=== PATIENT | male | born 1945 | race Caucasian/White ===

== ENCOUNTER 2018-11-12 05:52 | Inpatient (IN) | payer OTHER ==
[~2018-11-12 05:52] MED LIST: Buffered Lidocaine 1% SYRIN* 1 ML/SYRINGE INTRADERM ONE; HYDROmorphone INJ1* 1 MG/ML SYRINGE IV PRN; Naloxone* 0.4 MG/ML 1 ML VIAL IV PRN; PROCHLORPERAZINE INJ 5 MG/ML 2 ML VIAL IV PRN; fentaNYL* 50 MCG/ML 2 ML VIAL (100 MCG VIAL) IV PRN; oxyCODONE TAB* 5 MG TAB PO PRN
--- OUTSIDE RECORDS SUMMARY | 2018-11-12 05:56 | XMS REPORT | Continuity of Care Document ---
:1945 External Reference #:[id number] Author Name Ene Wheeler M.D. 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 Onset: 09/20/2018 Social History Type Date Description Comments Sex Unknown ETOH Use Denies alcohol use Tobacco Use Start: Unknown End: Patient is a former smoker Unknown Smoking Status Reviewed: 10/30/18 Patient is a former smoker Exercise Type/Frequency Exercises sporadically Allergies, Adverse Reactions, Alerts Active Allergies Reaction Severity Comments Date Penicillin 09/20/2018 Procaine 09/20/2018 Tetracycline 09/20/2018 Medications Active Medications SIG Qnty Indications Ordering Provider Date Ble Compression use during the I89.0 Ene Wheeler, 09/20/2018 Stockings With Zippers day s/p tka M.D. Accu-Chek Pari Test Unknown Strips Fluticasone Propionate 2 sprays each Unknown nostril daily as 50mcg/Act Suspension needed BD Glucose 15g (3 tablets) Unknown 5gm Chewtabs as needed for blood glucose less than 80mg/dl Novolog Flexpen Unknown 100Unit/ML Solution Pen-Inject Loratadine Unknown 10mg Tablets Miconazole Nitrate apply twice daily Unknown 2% to affected area. Powder Metformin HCL take one tablet Unknown 1000mg by mouth twice a Tablets day Atorvastatin Calcium 1 by mouth every Unknown 20mg day Tablets Levothyroxine Sodium 1 by mouth every Unknown 150mcg day Tablets Multi Vitamin Mens 1 by mouth every Unknown Tablets day Preservision Areds 2 Unknown Areds 2 Capsules Naproxen 1 tablet with Unknown 500mg Tablets food by mouth twice a day Aspirin Adult Low Dose 1 by mouth every Unknown 81mg day Tablets DR Albuterol Sulfate Unknown Docusate Sodium Unknown Immunizations Description No Information Available Vital Signs Date Vital Result Comment 10/30/2018 10:36am Height 67 inches 5'7" Weight 276.00 lb Heart Rate 68 /min BP Systolic 122 mmHg BP Diastolic 64 mmHg Respiratory Rate 16 /min Body Temperature 97.1 F Pain Level 2 BMI (Body Mass Index) 43.2 kg/m2 09/20/2018 11:40am Height 67 inches 5'7" Weight 277.00 lb Heart Rate 78 /min BP Systolic 132 mmHg BP Diastolic 72 mmHg Respiratory Rate 14 /min Pain Level 1 BMI (Body Mass Index) 43.4 kg/m2 Results Description No Information Available Procedures Description No Information Available Medical Devices Description No Information Available Encounters Type Date Location Provider Dx Diagnosis Office Visit 09/20/2018 Orthopedic Ene Wheeler, M25.462 Effusion, left 11:15a [facility] knee M17.11 Unilateral primary osteoarthritis, right knee M25.562 Pain in left knee I89.0 Lymphedema, not elsewhere classified Assessments Date Code Description Provider 10/30/2018 Marianne5.462 Effusion, left knee Ene Wheeler M.D. 10/30/2018 M17.11 Unilateral primary osteoarthritis, right knee Ene Wheeler M.D. 10/30/2018 M25.562 Pain in left knee Ene Wheeler M.D. 09/20/2018 M25.462 Effusion, left knee Ene Wheeler M.D. 09/20/2018 M17.11 Unilateral primary osteoarthritis, right knee Ene Wheeler M.D. 09/20/2018 M25.562 Pain in left knee Ene Wheeler M.D. 09/20/2018 I89.0 Lymphedema, not elsewhere classified Ene Wheeler M.D. Plan of Treatment Future Appointment(s):11/22/2018 9:45 am - Ene Wheeler M.D. at [facility].11/12/2018 1:45 pm - DEE DEE Woodward at [facility]11/12/2018 1:45 pm - Gaudencio Pop PA-C at [facility]11/12/2018 1:45 pm - Ene Wheeler M.D. at [facility]10/30/2018 - Ene Wheeler M.D.M25.462 Effusion, left kneeM17.11 Unilateral primary osteoarthritis, right kneeFollow up:Follow up : To ORM25.562 Pain in left knee Functional Status Description No Information Available Mental Status Description No Information Available Referrals Refer to Reason for Referral Status Appt Date Faisal Buckner MD [place] [address] [phone]
--- OUTSIDE RECORDS SUMMARY | 2018-11-12 05:56 | XMS REPORT | Continuity of Care Document ---
:1945 External Reference #:[id number] Author Name Vidya Pierre Care Team Providers Name Role Phone [facility] Primary Care Physician Unavailable Payers Date Identification Numbers Payment Provider Subscriber Expires: 2019 Policy Number: [id number] [place]/ [facility] Selvin Paez Group Name: Auth#[id number] [address] [address] PayID: [id number] [place] [address] Problems Active Problems Provider Date Localized, primary osteoarthritis Ene Wheeler M.D. Onset: 09/20/2018 Family History Date Family Member(s) Observation Comments General Cancer General Rheumatoid Arthritis Social History Type Date Description Comments Sex Unknown Lives With Spouse Occupation Retired ETOH Use Denies alcohol use Tobacco Use Start: Unknown End: Patient is a former smoker Unknown Smoking Status Reviewed: 09/20/18 Patient is a former smoker Exercise Type/Frequency Exercises sporadically Allergies, Adverse Reactions, Alerts Active Allergies Reaction Severity Comments Date Penicillin 09/20/2018 Procaine 09/20/2018 Tetracycline 09/20/2018 Medications Active Medications SIG Qnty Indications Ordering Provider Date Ble Compression use during the I89.0 Ene Wheeler, 09/20/2018 Stockings With Zippers day s/p TKA M.D. Accu-Chek Pari Test Unknown Strips Fluticasone [...] DR Albuterol Sulfate Unknown Docusate Sodium Unknown Vital Signs Date Vital Result Comment 09/20/2018 11:40am Height 67 inches 5'7" Weight 277.00 lb Heart Rate 78 /min BP Systolic 132 mmHg BP Diastolic 72 mmHg Respiratory Rate 14 /min Pain Level 1 BMI (Body Mass Index) 43.4 kg/m2 Plan of Treatment 09/20/2018 - Ene Wheeler M.D.M25.462 Effusion, left kneeFollow up:Follow up: 7-10 days before qyrdhvoY93.12 Unilateral primary osteoarthritis, left kneeM25.562 Pain in left kneeI89.0 Lymphedema, not elsewhere classifiedNew Medication:Ble Compression Stockings With Zippers - use during the day s/p TKA
[2018-11-12] MEDS ORDERED: Ondansetron ODT TAB* 4 MG PO ONE (06:00)
[2018-11-12] MEDS ORDERED: celeCOXIB CAP* 200 MG PO ONE (06:00)
[2018-11-12] MEDS ORDERED: Gabapentin CAP(*) 300 MG PO ONE (06:00)
[2018-11-12] MEDS ORDERED: Lactated Ringers 1000 ML Bag* 1,000 ML IV SCH (06:00)
[2018-11-12] MEDS ORDERED: DiMENhydriNATE IV* 50 MG/ML VIAL IV PUSH ONE (06:00)
[2018-11-12] MEDS ORDERED: Acetaminophen TAB* 325 MG PO ONE (06:00)
[2018-11-12] MEDS ORDERED: Famotidine IV* 10 MG/ML 2 ML (20 mg) IV ONE (06:00)
[2018-11-12] MEDS ORDERED: Ondansetron ODT TAB* 4 MG ONE (06:56)
[2018-11-12] MEDS ORDERED: Clindamycin 900 MG/D5W BAG(*) 900 MG/50 ML BAG IVPB ONE (06:57)
[2018-11-12] MEDS ORDERED: celeCOXIB CAP* 200 MG ONE (06:57)
[2018-11-12] MEDS ORDERED: Gabapentin CAP(*) 300 MG ONE (06:57)
[2018-11-12] MEDS ORDERED: Acetaminophen TAB* 325 MG ONE (06:57)
[2018-11-12] MEDS ORDERED: Famotidine IV* 10 MG/ML 2 ML (20 mg) ONE (06:57)
[2018-11-12] MEDS ORDERED: Bupivacaine 0.5% SDV PF* 30ML VIAL ONE ×2 (07:01→08:26)
[2018-11-12] MEDS ORDERED: fentaNYL* 50 MCG/ML 5 ML VIAL (250 MCG VIAL) ONE (07:02)
[2018-11-12] MEDS ORDERED: Midazolam* 1 MG/ML 5 ML VIAL (5 MG) ONE (07:02)
[2018-11-12] MEDS ORDERED: KETAMINE HCL* 50 MG/ML 10 ML VIAL ONE (07:02)
[2018-11-12] MEDS: Clindamycin 600 MG IVPREMIX(* 600 MG/50 ML SDV IV SCH ×2 (07:36→20:24)
[2018-11-12] MEDS ORDERED: ROPIVACAINE 5 MG/ML 30 ML BTL (0.5%) ONE (08:14)
[2018-11-12] MEDS ORDERED: EPHEDrine (Pressors)* 50 MG/ML VIAL ONE (08:26)
[2018-11-12] MEDS ORDERED: DiMENhydriNATE IV* 50 MG/ML VIAL ONE (08:26)
[2018-11-12] MEDS ORDERED: Propofol* 10 MG/ML 20 ML BTL ONE (08:26)
[2018-11-12] MEDS ORDERED: Lidocaine 2% PF * 5 ML VIAL ONE (08:27)
[2018-11-12] MEDS ORDERED: HYDROmorphone INJ1* 1 MG/ML SYRINGE ONE (09:41)
[2018-11-12] MEDS ORDERED: PROCHLORPERAZINE INJ 5 MG/ML 2 ML VIAL ONE (10:16)
[2018-11-12] MEDS ORDERED: Ondansetron ODT TAB* 4 MG PO PRN (10:26)
[2018-11-12] MEDS ORDERED: oxyCODONE TAB* 5 MG TAB PO PRN (10:26)
[2018-11-12] MEDS ORDERED: Ondansetron INJ* 2 MG/ML VIAL IV PRN (10:26)
[2018-11-12] MEDS ORDERED: Temazepam CAP* 15 MG PO PRN (10:26)
[2018-11-12] MEDS ORDERED: Polyethylene Glycol 3350* 17 GM PACKET PO PRN (10:26)
[2018-11-12] MEDS ORDERED: diPHENhydraMINE IV* 50 MG/ML 1 ml VIAL (BENADRYL) IV PRN (10:26)
[2018-11-12] MEDS ORDERED: diPHENhydraMINE PO* 25 MG PO PRN (10:26)
[2018-11-12] MEDS ORDERED: Morphine INJ* 2 MG/ML 1 ML SYRINGE (TWO MG - NEW SYRINGE VERSION) IV PRN (10:26)
[2018-11-12] MEDS ORDERED: Magnesium Hydroxide LIQ* 30 ML UDC PO PRN (10:26)
[2018-11-12] MEDS ORDERED: Albuterol HFA INHALER* 8 gm MDI INH PRN (10:43)
[2018-11-12] MEDS ORDERED: Insulin REGULAR(*) 1 UNITS UNIT ONE (10:49)
[2018-11-12] MEDS ORDERED: Insulin REGULAR(*) 1 UNITS UNIT SUBCUT ONE (11:00)
[2018-11-12] MEDS ORDERED: oxyCODONE TAB* 5 MG TAB ONE (11:11)
[2018-11-12] MEDS ORDERED: Dextrose 50% VIAL 50 ml IV PUSH PRN ×2 (12:16→17:34)
[2018-11-12] MEDS: Lactated Ringers 1000 ML Bag* 1,000 ML IV SCH ×2 (12:27→23:30)
--- NOTE | 2018-11-12 13:38 | CONS ---
CC: Taylor Noonan; Dr. Wheeler * CONSULTATION REPORT: DATE OF CONSULT: 11/12/18 PRIMARY CARE PROVIDER: Taylor Noonan from [place] in [place]. REQUESTING PHYSICIAN: Dr. Wheeler for medical management of this patient after a right knee replacement. CHIEF COMPLAINT: Right knee pain. HISTORY OF PRESENT ILLNESS: Selvin Paez is a 72-year-old male with history of morbid obesity, status post gastric bypass, who is now seen in postoperative unit after elective right knee replacement. The patient has a history of diabetes and morbid obesity and Dr. Wheeler requested medical management consult for this patient postoperatively. PAST MEDICAL HISTORY: 1. History of PE in 1970s. 2. History of asthma. 3. Osteoarthritis. 4. Diabetes type 2, insulin dependent. 5. Morbid obesity, status post gastric sleeve surgery. 6. History of left breast tumor excision. 7. History of forehead tumor excision, both of them benign. MEDICATIONS: At home include: 1. Insulin aspart per sliding scale 3 times a day. The patient uses usually 6 units of insulin with each meal. 2. Aspirin 81 mg daily. 3. Albuterol inhaler on a p.r.n. basis. 4. Levothyroxine 150 mcg daily. 5. Metformin 1000 mg b.i.d. 6. Senna 1 tablet daily p.r.n. 7. Naproxen 500 mg q.a.m. p.r.n. 8. Flonase nasal spray, 2 sprays both nostrils q.a.m. p.r.n. 9. PreserVision AREDS 1 capsule b.i.d. 10. Atorvastatin 10 mg q.a.m. 11. Miconazole topical b.i.d. p.r.n. ALLERGIES: PENICILLIN, PROCAINE, and TETRACYCLINE cause hives and labored breathing. FAMILY HISTORY: Reviewed and noncontributory. SOCIAL HISTORY: The patient lives with his , who is his surrogate, her first name is Will Paez. He denies any alcohol, tobacco, or drug use. He had been ambulating with rolling walker. PHYSICAL EXAM: Blood pressure of 142/70, heart rate of 72 and regular, respiratory rate 17, oxygen saturation 99% on 3 L of oxygen via nasal cannula, temperature of 98.8. General: The patient is a very pleasant 72-year-old male with BMI of 43, who is in no acute distress. Alert, awake, and oriented x3. HEENT: Head: Atraumatic, normocephalic. Eyes: Pupils are equal, reactive to light and accommodation. Oropharynx is clear. Mucosa moist. Neck: Supple. No JVD. No bruit bilaterally. Cardiovascular: Regular rate and rhythm. No murmur. Respiratory: Clear to auscultation bilaterally. Abdomen: Soft, nontender. Bowel sounds are present in 4 quadrants. Extremities: There is trace bilateral ankle edema. Pulses +2 bilaterally. There is no clubbing, cyanosis. On neuro evaluation, speech clear. Cranial nerves II through XII grossly intact. Motor strength is 5/5 bilaterally. On evaluation of the skin, the patient's postoperative right knee is wrapped in postsurgical dressings and Cryo unit that was not removed for inspection. Psychiatric evaluation: The patient is slightly lethargic after his sedation for the surgery, but otherwise oriented x3 with no evidence of anxiety or depression. LABORATORY DATA: Showed today's glucose level of 212 postoperatively. ASSESSMENT AND PLAN: 1. For postoperative management after right knee replacement, this is going to be as per the orthopedic service and Dr. Wheeler. The patient was already ordered apixaban b.i.d. postoperatively for DVT prophylaxis. 2. In regards to patient's diabetic management, he is going to be placed on insulin sliding scale. His metformin is going to be held. 3. For his hypothyroidism, his Synthroid is going to be continued at home dose. 4. For DVT prophylaxis, as above, apixaban twice a day. 5. The patient's code status is full. His surrogate is his . TIME SPENT: Approximately 55 minutes was spent on consultation of this patient. Thank you very much for allowing our services to see the patient in consultation. We will follow on daily basis. [id number]/[facility] #: [id number] MAREN
[2018-11-12] MEDS ORDERED: INSULIN ASPART 100 UNIT SC SCH (14:00)
--- NOTE | 2018-11-12 14:24 | PN ---
Progress Note - Progress Note Date of Service: 11/12/18 - Post-op Note: Post-op: Patient resting comfortably in bed eating meal. His pain is well controlled. He has not been up with PT yet. He denies SOB or CP. He can DF/PF, sensation is intact with 2+ DP pulse. Skin is warm and dry. We will monitor and appreciate medicine's management. Continue pain management and PT.
[2018-11-12] MEDS: Acetaminophen TAB* 325 MG PO SCH ×2 (14:56→22:14)
[2018-11-12] MEDS ORDERED: Insulin LISPRO* 1 UNITS UNIT SUBCUT ONE (17:34)
[2018-11-12] MEDS: traMADol TAB* 50 MG PO PRN (17:59)
[2018-11-12] MEDS: Insulin LISPRO* 1 UNITS UNIT SUBCUT SCH ×2 (18:08→22:11)
[2018-11-12] MEDS ORDERED: Clindamycin 600 MG/D5W BAG(*) 600 MG/50 ML BAG IV SCH (20:01)
[2018-11-12] MEDS: Clindamycin 600 MG/D5W BAG(*) 600 MG/50 ML BAG IV SCH (20:47)
[2018-11-12] MEDS ORDERED: metFORMIN* 1,000 MG TAB PO SCH (21:00)
--- NOTE | 2018-11-12 21:55 | OP ---
Operative Report - Blank - Operative Report Date of Operation: 11/12/18 Note: KRISTINA MERCADO 1945 Date of Surgery: 11/12/18 Ene Wheeler MD Supervisor Nurse: Peter GERMAIN did help throughout the procedure with preparation of the knee, wound retraction, manipulation of the knee, and wound closure. Anesthesiologist: Ed Charlton MD Anesthesia Type: Spinal Preoperative Diagnosis: Right severe degenerative osteoarthritis of the knee Postoperative Diagnosis: As above Procedure Performed: Right Total Knee Arthroplasty Tourniquet time: 55 minutes Complications: None Specimen: Bone and cartilage from the right knee joint sent to pathology. Hardware Used: Cemented Arenas and Nephew total knee hardware was used - For the femur a size 6 right legion posterior stabilized femoral component, for the tibia a size 6 right williams II tibial baseplate, for the insert a size 9mm 5-6 posterior stabilized articular polyethylene insert, and for the patella a size 35 3-peg all poly patella. Brief History/Indication: KRISTINA MERCADO was known in clinic and had a history of severe right knee pain and swelling. He failed conservative treatment with anti-inflammatories, pain pills, intra-articular injections and physical therapy. He elected to undergo right total knee arthroplasty due to continued pain and decreased quality of life. Radiographs showed severe end stage osteoarthritis of the knee with bone on bone contact. Informed consent was obtained from the patient. He understood the risks of surgery included but were not limited to: bleeding, infection, damage to nearby structures, intraoperative fracture, nerve palsy, failure of the hardware, early loosening, knee stiffness or loss of motion, anesthesia complications, stroke, heart attack , blood clot and . He wished to proceed. Intra-Operative Findings: Intraoperatively the patient was noted to have severe loss of cartilage in all 3 compartments of the knee. Description of the Procedure: KRISTINA MERCADO was identified in the preanesthesia unit. His right knee was marked as the correct operative side. Informed consent was signed and placed in the chart. The patient was taken to the operating room and placed under anesthesia without complication. A starks catheter was placed. A tourniquet was placed on the right thigh. The right lower extremity was prepped and draped in the usual sterile fashion. Preoperative time-out was made to correctly identify the patient, side and site. Appropriate intraoperative antibiotics were given within one hour of incision. Tourniquet was inflated. A midline incision was made and carried sharply down to the extensor mechanism. A new 10 blade was used to make a standard medial parapatellar arthrotomy. The patella was subluxed laterally. Electrocautery was used to dissect soft tissue off the superomedial tibia to the midsagittal plane. The knee was flexed up. The anterior horn of the lateral meniscus and the ACL were sharply incised. A drill was used to enter the distal femur. The intramedullary distal femoral cutting guide was pinned on the distal femur. The oscillating saw was used to make the distal femoral cut. The external rotation guide was pinned on the distal femur and the distal femur was sized to a size 6. The size 6 multi-cutting jig was pinned on the distal femur. The oscillating saw was used to make the appropriate 4 chamfer cuts. Next the PCL was completely released. The extramedullary tibial cutting guide was pinned on the proximal tibia and the oscillating saw was used to make the proximal tibial cut perpendicular to the mechanical axis of the tibia. The bone was carefully removed. The knee was brought out into full extension. The spacer block was placed and had excellent fit with the knee in full extension. The medial and lateral ligaments were well balanced. The flexion and extension gaps were well balanced. The knee was flexed up. Lamina procurement clerk was placed both medially and laterally. Any remaining meniscus was removed with electrocautery. Curved osteotome was used to remove any posterior osteophytes. The tibial tray and drop trip were placed and confirmed a satisfactory tibial cut. The size 6 right femoral trial was impacted onto the distal femur. This trial had excellent fit and stability. The box for the posterior stabilized implant was prepared using a box cut osteotome and a reamer. Next a tibial tray trial and 9 mm insert trial was placed. The knee was taken through a range of motion and had full extension to 130 degrees of flexion. Patellofemoral tracking was satisfactory. The patella was inverted and sized to a size 35. Three peg holes were drilled through the size 35 drill guide. The trial patella was placed and the knee was taken through a range of motion. There was satisfactory patellofemoral tracking. All trials were removed. The tibia was subluxed anteriorly and sized to a size 6. The proximal tibial was prepared with a size 6 keel punch. All bony cut surfaces were irrigated with sterile saline and dried. Final implants were cemented into place starting with the tibia, followed by the femur, and last the patella. A 9 mm insert trial was placed and the knee was brought into full extension. Tourniquet was turned down and the knee was copiously irrigated with sterile saline. Electrocautery was used to obtain meticulous hemostasis. Once the cement had fully cured, the insert trial was removed. Any excess cement was removed from around the hardware and capsule. Final insert chosen was a 9 mm posterior stabilized Williams II articular insert size 5-6. Stability of the insert was checked and noted to be stable. The extensor mechanism was closed using number 1 vicryls. The rest of the incision was closed in a layered fashion using 0 and 2-0 vicryls. The skin was closed using 3-0 nylon suture. Sterile xeroform, 4x4s and webril were used to cover the incision. Sascha wrap and cold pack were used to cover the dressings. The patients anesthesia was reversed without difficulty. He was taken to the PACU in stable condition. Intended weight-bearing will be as tolerated.
[2018-11-12] MEDS: Cyclobenzaprine TAB* 10 MG PO PRN (22:09)
[2018-11-12] MEDS: Docusate CAP* 100 MG PO SCH (22:12)
[2018-11-12] MEDS: oxyCODONE/Acetamin 5/325 MG* TAB PO PRN (22:12)
[2018-11-12] MEDS: Magnesium Hydroxide LIQ* 30 ML UDC PO SCH (22:13)
[2018-11-13] MEDS: oxyCODONE/Acetamin 5/325 MG* TAB PO PRN ×2 (04:20→11:13)
[2018-11-13] MEDS: Acetaminophen TAB* 325 MG PO SCH ×3 (05:32→22:22)
[2018-11-13] MEDS: Levothyroxine TAB* 150 MCG TAB PO SCH (05:39)
[2018-11-13] MEDS: Clindamycin 600 MG/D5W BAG(*) 600 MG/50 ML BAG IV SCH ×2 (05:41→14:14)
[2018-11-13] MEDS: traMADol TAB* 50 MG PO PRN ×3 (07:49→22:21)
[2018-11-13] MEDS: Cetirizine* 10 MG TAB PO SCH (08:17)
[2018-11-13] MEDS: Apixaban* 2.5 MG TAB PO SCH ×2 (08:17→22:20)
[2018-11-13] MEDS: Vitamin THERAPEUTIC TAB PO SCH (08:18)
[2018-11-13] MEDS: Atorvastatin* 20 MG TAB PO SCH ×2 (08:18→10:02)
[2018-11-13] MEDS: Docusate CAP* 100 MG PO SCH ×2 (08:18→22:21)
[2018-11-13] MEDS: Insulin LISPRO* 1 UNITS UNIT SUBCUT SCH ×4 (08:19→22:48)
[2018-11-13] MEDS: Magnesium Hydroxide LIQ* 30 ML UDC PO SCH ×2 (08:19→22:22)
[2018-11-13] MEDS: Cyclobenzaprine TAB* 10 MG PO PRN ×3 (08:19→22:21)
[2018-11-13] MEDS ORDERED: Influenza VAC *QUAD* 2019-20* 0.5 ML SYRINGE IM ONE (09:00)
[2018-11-13 10:26] LABS: Hematocrit 34 % (42-52); Hemoglobin 11.5 g/dL (14.0-18.0); Mean Platelet Volume 9.8 fL (7.4-10.4); Platelet Count 93 10^3/uL (150-450)
--- NOTE | 2018-11-13 10:39 | PN ---
Progress Note - Progress Note Date of Service: 11/13/18 SOAP: Subjective: []Pt seen at bedside. He feels well without complaints. Denies CP, SOB, dizziness, nausea. Has remote hx PE Objective: []Gen: Appears well, NAD RLE: RIght knee dressing CDI, thigh soft, DF/PF intact, DP2+, sensation intact to light touch distally Calves supple and nontender without erythema or palpable cords. BL edema which is baseline Assessment: []POD 1 sp RTK Plan: []WBAT PT/OT eliquis 2.5 mg po BID x 30 days post op Todays labs not yet back Plans for DC home tomorrow Vital Signs Temp 98.3 F 11/13/18 08:12 Pulse 70 11/13/18 08:12 Resp 16 11/13/18 08:19 BP 135/54 11/13/18 08:12 Pulse Ox 100 11/13/18 08:12 Intake & Output 11/12/18 11/13/18 11/13/18 18:59 06:59 18:59 Intake Total 2980 1925 1376 Output Total 375 1550 200 Balance 2605 375 1176 Weight 277 lb Intake: IV Fluids 1999 1045 961 ABX - CLINDAMYCIN 55 LR 2000 990 961 IVPB 55 ABX - CLINDAMYCIN 55 Oral 980 880 360 Output: Urine 375 200 Sam 1550 Laboratory Last Values Hgb 11.5 g/dL (14.0-18.0) L 11/13/18 10:11 Hct 34 % (42-52) L 11/13/18 10:11 Plt Count 93 10^3/uL (150-450) L 11/13/18 10:11 MPV 9.8 fL (7.4-10.4) 11/13/18 10:11 POC Glucose (mg/dL) 209 mg/dL (70-100) H 11/13/18 07:51
[2018-11-13 10:41] LABS: BUN/Creatinine Ratio 16.7 (8-20); Calcium 8.4 mg/dL (8.6-10.3); EGFR African American 130.6 (>60); EGFR Non-African American 107.9 (>60); Potassium 3.9 mmol/L (3.5-5.0)
[2018-11-13] MEDS: Atorvastatin* 10 MG TAB PO SCH (11:14)
[2018-11-14] MEDS: oxyCODONE/Acetamin 5/325 MG* TAB PO PRN ×3 (04:16→12:48)
[2018-11-14] MEDS: Levothyroxine TAB* 150 MCG TAB PO SCH (05:11)
[2018-11-14] MEDS: Cyclobenzaprine TAB* 10 MG PO PRN (05:17)
[2018-11-14] MEDS: Acetaminophen TAB* 325 MG PO SCH (05:51)
[2018-11-14 07:12] LABS: Hematocrit 35 % (42-52); Hemoglobin 11.7 g/dL (14.0-18.0); Mean Platelet Volume 9.8 fL (7.4-10.4); Platelet Count 111 10^3/uL (150-450)
[2018-11-14] MEDS: Docusate CAP* 100 MG PO SCH (08:54)
[2018-11-14] MEDS: Atorvastatin* 10 MG TAB PO SCH (08:54)
[2018-11-14] MEDS: Apixaban* 2.5 MG TAB PO SCH (08:54)
[2018-11-14] MEDS: Magnesium Hydroxide LIQ* 30 ML UDC PO SCH (08:54)
[2018-11-14] MEDS: Cetirizine* 10 MG TAB PO SCH (08:54)
[2018-11-14] MEDS: Vitamin THERAPEUTIC TAB PO SCH (08:55)
[2018-11-14] MEDS: Insulin LISPRO* 1 UNITS UNIT SUBCUT SCH ×2 (08:56→12:02)
[2018-11-14] MEDS ORDERED: Bisacodyl SUPP* 10 MG SUPP PR PRN (10:26)
--- NOTE | 2018-11-14 11:25 | DS ---
Orthopedic Discharge Summary - Discharge Summary Date of Admission:11/12/18 Date of Discharge: 11/14/18 Date of Surgery: 11/12/18 Attending Orthopedic Provider: Dr Wheeler Pre-operative Diagnosis: Right knee osteoarthritis Operative Procedure: right total knee replacement Disposition of Patient: home Condition of Patient: stable History: KRISTINA MERCADO is a 72 year old M with years of increasingly severe right knee pain. Patient has failed conservative management and has elected to undergo a right total knee replacement Hospital Course: KRISTINA was admitted to [facility] on 11/12/18. Patient underwent a right total knee replacement without complication followed by a brief recovery in PACU and transfer to the Short Stay Surgical Unit in stable condition. Our hospitalist service, physical therapy and occupational therapy also participated in this patients care. Post-op day 1: patient was alert and in no acute distress. Dressing was clean, dry and intact. Operative extremity dorsiflexion and plantarflexion intact, sensation intact to light touch distally, DP2+. Post-op day two: dressing was changed, incision was clean , dry and intact. Patient was deemed to be medically and orthopedically stable for discharge. Physical therapy goals were met. Home Medications Medication Instructions Recorded Confirmed Type Albuterol HFA INHALER* 2 puff INH Q4H PRN 10/30/18 11/12/18 History Aspirin EC TAB* [Ecotrin EC Low 81 mg PO QAM 10/30/18 11/12/18 History Dose 81 MG*] Atorvastatin* [Lipitor 20 MG*] 10 mg PO QAM 10/30/18 11/12/18 History Dextrose [Glucose] 4 tab PO ONCE PRN 10/30/18 10/30/18 History Fluticasone NASAL SPRAY 50MCG* 2 spray BOTH NARES QAM PRN 10/30/18 10/30/18 History [Flonase NASAL SPRAY 50MCG*] Insulin Aspart [Novolog] 100 unit SC TID 10/30/18 11/12/18 History Levothyroxine TAB* [Synthroid 150 0.15 mg PO QAM 10/30/18 11/12/18 History MCG TAB*] Loratadine 10 mg PO QAM 10/30/18 11/12/18 History Miconazole 1 top.lotion TOPICAL BID 10/30/18 10/30/18 History Sennosides/Docusate Sodium 1 each PO QAM 10/30/18 11/12/18 History [Docusate Sodium-Sennosides Tab] Vit A/Vit C/Vit E/Zinc/Copper 1 cap PO BID 10/30/18 11/12/18 History [Preservision Areds Softgel] metFORMIN* [Glucophage 1000 MG TAB 1,000 mg pe PO BID 10/30/18 11/12/18 History *] Acetaminophen TAB* [Tylenol TAB*] 975 mg PO Q8HR tab 11/14/18 Rx Apixaban* [Eliquis*] 2.5 mg PO BID #60 tab 11/14/18 Rx Docusate CAP* [Colace Cap*] 100 mg PO BID #90 cap 11/14/18 Rx oxyCODONE/Acetamin 5/325 MG* 1 tab PO Q4H PRN tab MDD 10 11/14/18 Rx [Percocet 5/325 TAB*] oxyCODONE/Acetamin 5/325 MG* 2 tab PO Q4H PRN #70 tab MDD 10 11/14/18 Rx [Percocet 5/325 TAB*] Discharge Instructions following Orthopedic Surgery: Activity: * Weight Bearing as tolerated * Continue physical therapy and occupational therapy exercises as shown * Home PT Wound care: * OK to shower on post-op day 3, no bathing, swimming, or submerging wound. * Use gentle soap, pat dry. Cover with gauze, JAYDE wrap or tape. * Visiting home nurse to do wound checks. Call Orthopedic office for: * Increased drainage * Redness * Increased pain * Fever Go to ER with shortness of breath or chest pain. Diet: * Regular diet * Increase fluids and fiber to prevent constipation. * Continue to use stool softeners, call office if no bowel motion within 48 hours. Medications See Home Medication List in your packet for medications that you should take after discharge. DVT Prophylaxis: Eliquis Dosin.5 mg, 1 tab every 12 hours x 30 days. Increases bleeding tendency Pain Control: Percocet Dosin/325 mg 1-2 tabs by mouth every 4-6 hours as needed for pain. Maximum of 10 tabs per day. Hold for sedation, wean off as soon as pain allows Please note that Percocet contains Tylenol (acetaminophen). Maximum daily dose of Tylenol is 4000 mg from all sources. Antibiotics are required prior to any dental work. FOLLOW UP: Follow up with [Liam] Within 10-14 days, call for appointment Please call our office with any questions or concerns ([phone]) RX to [facility]
[2018-11-14 11:55] VITALS: BP 134/61
== END 2018-11-14 13:00 | disposition home or self-care (01) | DRG 470 ==
LOC: AA 05:52 → SSU 12:05
PROVIDERS: ADMIT Orthopaedic Surgery Adult Reconstructive Orthopaedic Surgery; ATTEND Orthopaedic Surgery Adult Reconstructive Orthopaedic Surgery
PROC: 0SRC0J9 Replacement of Right Knee Joint with Synthetic Substitute, Cemented, Open Approach (ICD-10-PCS; principal; 2018-11-12 07:45)
DX: M17.11 Unilateral primary osteoarthritis, right knee (principal); Z68.41 Body mass index [BMI] 40.0-44.9, adult; J45.909 Unspecified asthma, uncomplicated; E11.9 Type 2 diabetes mellitus without complications; E66.01 Morbid (severe) obesity due to excess calories; M25.462 Effusion, left knee; M25.761 Osteophyte, right knee; Z86.711 Personal history of pulmonary embolism; Z86.718 Personal history of other venous thrombosis and embolism; Z79.84 Long term (current) use of oral hypoglycemic drugs; Z79.82 Long term (current) use of aspirin; Z79.4 Long term (current) use of insulin; Z79.899 Other long term (current) drug therapy; Z88.0 Allergy status to penicillin; Z88.8 Allergy status to other drugs, medicaments and biological substances; Z90.3 Acquired absence of stomach [part of]
CPT/HCPCS: 36415; 80048; 85014; 85018; 85049; 88305; 88311; A9270-GY; C1776; G8978-GP-CK; G8979-GP-CH; J0780; J1170; J1240; J2250; J2704; J2795; J3010; J3490

== ENCOUNTER 2018-11-16 09:11 | Emergency (ER) | payer OTHER, BC ==
[2018-11-16] MEDS ORDERED: NS 0.9% 1000 ML** 1,000 ML IV ONE (11:02)
[2018-11-16] MEDS ORDERED: Polyethylene Glycol 3350* 17 GM PACKET PO PRN (11:43)
[2018-11-16] MEDS ORDERED: Magnesium CITRATE* 300 ML BTL PO ONE (11:43)
[2018-11-16 11:45] LABS: ABS Eosinophils 0.1 10^3/ul (0-0.6); ABS Lymphocytes 1.1 10^3/ul (1.0-4.8); ABS Monocytes 0.9 10^3/ul (0-0.8); ABS Neutrophils 6.9 10^3/ul (1.5-7.7); Eosinophil % 0.8 %; Hematocrit 35 % (42-52); Hemoglobin 12.1 g/dL (14.0-18.0); Lymphocyte % 12.6 %; Mean Corpuscular HGB Conc 35 g/dL (31-36); Mean Corpuscular Hemoglobin 31 pg (27-31); Mean Corpuscular Volume 89 fL (80-94); Mean Platelet Volume 9.1 fL (7.4-10.4); Platelet Count 169 10^3/uL (150-450); Red Blood Count 3.96 10^6 /uL (4.18-5.48); Red Cell Distribution Width 14 % (10-15); White Blood Count 9.1 10^3/uL (3.5-10.8)
[2018-11-16] MEDS ORDERED: Sodium Phosphate ADULT ENEMA* 118 ml bottle PR ONE (11:54)
--- NOTE | 2018-11-16 12:02 | ED ---
GI/ HPI - HPI Summary HPI Summary: 72 year old male presents to the ED with a chief complaint of being constipated since 5 days ago. He complains of abdominal pain that is rated a 10/10 severity. Despite the pain, he has normal appetite and has been drinking fluids. Patient denies nausea and vomiting. Pt had knee surgery 4 days ago and has not had bowel movements since. PMHx of DM and thyroid disease is noted, patient is on insulin and synthroid. He additionally reports Hx of brain cancer. PSHx of gastric sleeve, carpal tunnel surgery. He denies usage of tobacco, alcohol, and recreational drugs. FMHx of thyroid disease is reported. - History of Current Complaint Chief Complaint: EDConstipation Time Seen by Provider: 11/16/18 10:29 Stated Complaint: CONSTIPATED PER PT Hx Obtained From: Patient Onset/Duration: Started Days Ago, Still Present Timing: Constant Severity: Severe Current Severity: Severe Pain Intensity: 10 Location of Pain: Diffuse Associated Signs and Symptoms: Positive: Constipation, Abdominal Pain. Negative : Nausea, Vomiting, Change in Appetite - Additional Pertinent History Primary Care Physician: SUKHDEEP - Allergy/Home Medications Allergies/Adverse Reactions: Allergies Allergy/AdvReac Type Severity Reaction Status Date / Time Penicillins Allergy Rash Verified 11/16/18 10:34 tetracycline Allergy Difficulty Verified 11/16/18 10:34 Breathing PROCAINE Allergy Shakes Uncoded 10/30/18 12:30 Home Medications: Home Medications Apixaban* [Eliquis*] 2.5 mg PO BID 11/16/18 [History Confirmed 11/16/18] PMH/Surg Hx/FS Hx/Imm Hx Endocrine/Hematology History: Reports: Hx Diabetes - ON INSULIN AND METFORMIN, Hx Thyroid Disease - HYPOTHROID-TAKES SYNTHROID Denies: Hx Bone Marrow Disease, Hx Sickle Cell Disease, Hx Anemia Cardiovascular History: Denies: Hx Hypertension, Hx Pacemaker/ICD, Other Cardiovascular Problems/ Disorders Respiratory History: Reports: Hx Asthma - USES ALBUTEROL Denies: Hx Pulmonary Embolism - 1969'S WHILE IN - WAS ON WARFARIN X 3 MONTHS, Hx Sleep Apnea, Other Respiratory Problems/Disorders GI History: Denies: Hx Gastroesophageal Reflux Disease, Other GI Disorders History: Denies: Hx Kidney Infection, Hx Kidney Stones, Other Problems/Disorders Musculoskeletal History: Reports: Hx Arthritis - RIGHT KNEE AND THRUOUT BODY PER PT, Hx Tendonitis - RANDAL. WRIST Sensory History: Reports: Hx Contacts or Glasses - GLASSES, Hx Glaucoma - CORRECTED WITH LASER Denies: Hx Cataracts, Hx Hearing Aid Opthamlomology History: Reports: Hx Contacts or Glasses - GLASSES, Hx Glaucoma - CORRECTED WITH LASER Denies: Hx Cataracts Neurological History: Denies: Other Neuro Impairments/Disorders Psychiatric History: Denies: Other Psychiatric Issues/Disorders - Cancer History Hx Chemotherapy: No - Surgical History Surgery Procedure, Year, and Place: [email or web address].CTR, GASTRIC SLEEVE, LEFT BREAST TUMOR REMOVED , FOREHEAD TUMOR REMOVED Hx Anesthesia Reactions: No Infectious Disease History: No Infectious Disease History: Denies: Hx Clostridium Difficile, Hx Hepatitis, Hx Human Immunodeficiency Virus (HIV), Hx of Known/Suspected MRSA, Hx Shingles, Hx Tuberculosis, History Other Infectious Disease, Traveled Outside the [place] in Last 30 Days - Family History Known Family History: Positive: Other - FMHx of thyroid disease - Social History Alcohol Use: None Substance Use Type: Reports: Prescribed Smoking Status (MU): Former Smoker Type: Cigarettes Amount Used/How Often: 3 1/2 PPD X 15 YRS Review of Systems Negative: Fever - on vitals, temp is 98.9 F Gastrointestinal: Other - negative - changes in appetite and PO fluid intake Positive: Abdominal Pain, Other - Constipation. Negative: Vomiting, Nausea All Other Systems Reviewed And Are Negative: Yes Physical Exam - Summary Physical Exam Summary: VITAL SIGNS: Reviewed. GENERAL: Patient is a well-developed and obese male who is lying comfortable in the stretcher. Patient is not in any acute respiratory distress. HEAD AND FACE: Normocephalic and atraumatic. EYES: PERRLA, EOMI x 2, No injected conjunctiva. EARS: Hearing grossly intact. Ear canals and tympanic membranes are WNL. MOUTH: Oropharynx within normal limits. NECK: Supple, trachea is midline, no adenopathy, no JVD. CHEST: Symmetric, no tenderness at palpation. LUNGS: Clear to auscultation bilaterally. No wheezing or crackles. CVS: RRR, S1 and S2 present, no murmurs or gallops appreciated. ABDOMEN: Soft, non-tender. No signs of distention. Decreased bowel sounds noted. No rebound, no guarding, and no masses palpated. No abdominal bruit or pulsations. RECTAL EXAM: No hemorrhoids, vault is empty, no stool noted. EXTREMITIES: FROM in all major joints, no edema, no cyanosis or clubbing. Incision of right knee is clean, dry and intact. NEURO: Alert and oriented x 3. No acute neurological deficits. Speech is normal. SKIN: Dry and warm. Triage Information Reviewed: Yes Vital Signs On Initial Exam: Initial Vitals Temp Pulse Resp BP Pulse Ox 98.9 F 101 18 121/62 96 11/16/18 09:14 11/16/18 09:14 11/16/18 09:14 11/16/18 09:14 11/16/18 09:14 Vital Signs Reviewed: Yes Diagnostics - Vital Signs Vital Signs Temp Pulse Resp BP Pulse Ox 11/16/18 09:14 98.9 F 101 18 121/62 96 - Laboratory Lab Results: Lab Results 11/16/18 Range/Units 11:38 WBC 9.1 (3.5-10.8) 10^3/uL RBC 3.96 L (4.18-5.48) 10^6 /uL Hgb 12.1 L (14.0-18.0) g/dL Hct 35 L (42-52) % MCV 89 (80-94) fL MCH 31 (27-31) pg MCHC 35 (31-36) g/dL RDW 14 (10-15) % Plt Count 169 (150-450) 10^3/uL MPV 9.1 (7.4-10.4) fL Neut % (Auto) 76.2 % Lymph % (Auto) 12.6 % [place] % (Auto) 10.2 % Eos % (Auto) 0.8 % Baso % (Auto) 0.2 % Absolute Neuts (auto) 6.9 (1.5-7.7) 10^3/ul Absolute Lymphs (auto) 1.1 (1.0-4.8) 10^3/ul Absolute Monos (auto) 0.9 H (0-0.8) 10^3/ul Absolute Eos (auto) 0.1 (0-0.6) 10^3/ul Absolute Basos (auto) 0.0 (0-0.2) 10^3/ul Absolute Nucleated RBC 0.0 10^3/ul Nucleated RBC % 0.0 Result Diagrams: 11/16/18 11:38 11/16/18 11:38 Lab Statement: Any lab studies that have been ordered have been reviewed, and results considered in the medical decision making process. - Radiology Abd XR Radiology Interpretation Completed By: Radiologist Summary of Radiographic Findings: ABD XR shows nonspecific bowel gas pattern. Large amount of stool throughout the colon. An ED physician has reviewed this report. GIGU Course/Dx - Course Assessment/Plan: This patient is a 72-year-old male who presents to the emergency department with a chief complaint of having constipation. The patient reports that he hasnt been able to have a bowel movement last 5 days. Patient also reports that for the physical he has right knee surgery which he has no complaints. She is doing very well and he has minimal pain. Patient denies any fever, chest pain or shortness of breath. X-ray of the abdomen impression: non-specific bowel gas pattern. Large amount of stool throughout the colon. Blood work without any significant abnormality except for slight normocytic normochromic anemia. I perform a rectal exam for the patient and the vault of the rectum is empty. Therefore I give the patient MiraLAX, lactulose, magnesium citrate. He will be discharged home with the same medications that he was given, awaiting for a bowel movement. The patient and the patients are comfortable with the plan. He was recommended to return to the emergency department if he develops any other symptoms or if he doesnt have any bowel movement. Patient understands and agrees. I discussed all the findings and test results with the patient. Patient was instructed to return to the emergency room immediately if any of the symptoms return or worsen. They were explained the possibility of an early abdominal pathology which was not detected at this time despite the physical exam and testing. They understand and agree. Abdominal exam before discharge: Soft, NT. No signs of distention. BS present. No rebound no guarding, and no masses palpated. Patient is alert and oriented and hemodynamically stable. Patient is to follow up with primary care physician in the next 2 to 3 days. Patient agrees and understands. - Diagnoses Differential Diagnoses - Male: Constipation, Bowel Obstruction, Dehydration Provider Diagnoses: Constipation Discharge ED - Sign-Out/Discharge Documenting (check all that apply): Patient Departure - discharge Patient Received Moderate/Deep Sedation with Procedure: No - Discharge Plan Condition: Stable Disposition: HOME Prescriptions: Lactulose* 30 ml PO DAILY #60 ml Magnesium CITRATE* [Citrate of Magnesia*] 300 ml PO ONCE #1 btl Sodium Phosphate ADULT ENEMA* [Fleet Enema*] 1 bottle .SEE ORDER ONCE #2 btl Patient Education Materials: Constipation (ED) Referrals: Taylor Noonan NP [Primary Care Provider] - Additional Instructions: Follow up with primary care provider in 2-3 days. Return to the emergency department for any new or worsening symptoms. - Billing Disposition and Condition Condition: STABLE Disposition: Home - Attestation Statements Document Initiated by Daria: Yes Documenting Scribe: Juice Jacinto Provider For Whom Daria is Documenting (Include Credential): Dr. Shayne Ramírez MD. Scribe Attestation: Juice Betancourt scribed for Dr. Shayne Ramírez MD. on 11/18/18 at 1107. Scribe Documentation Reviewed: Yes Provider Attestation: The documentation as recorded by the Juice jane accurately reflects the service I personally performed and the decisions made by me, Dr. Shayne Ramírez MD. Status of Scribe Document: Viewed
[2018-11-16 12:04] LABS: ALT 52 U/L (7-52); AST 40 U/L (13-39); Albumin 3.6 g/dL (3.2-5.2); Albumin/Globulin Ratio 1.2 (1-3); Alkaline Phosphatase 85 U/L (34-104); Anion Gap 7 mmol/L (2-11); BUN/Creatinine Ratio 13.9 (8-20); Blood Urea Nitrogen 10 mg/dL (6-24); C Reactive Protein 155.35 mg/L (<8.01); CO2 Carbon Dioxide 28 mmol/L (22-32); Calcium 8.8 mg/dL (8.6-10.3); Chloride 102 mmol/L (101-111); EGFR African American 130.6 (>60); EGFR Non-African American 107.9 (>60); Globulin 2.9 g/dL (2-4); Glucose 222 mg/dL (70-100); Potassium 4.1 mmol/L (3.5-5.0); Sodium 137 mmol/L (135-145); Total Protein 6.5 g/dL (6.4-8.9)
[2018-11-16 12:32] VITALS: BP 139/68
== END 2018-11-16 12:30 | disposition home or self-care (01) ==
LOC: ED 09:11
DX: K59.00 Constipation, unspecified (principal); E11.9 Type 2 diabetes mellitus without complications; E03.9 Hypothyroidism, unspecified; J45.909 Unspecified asthma, uncomplicated; Z79.4 Long term (current) use of insulin; Z79.890 Hormone replacement therapy; Z98.84 Bariatric surgery status; Z87.891 Personal history of nicotine dependence; Z79.01 Long term (current) use of anticoagulants; Z79.899 Other long term (current) drug therapy; Z88.4 Allergy status to anesthetic agent; Z88.1 Allergy status to other antibiotic agents; Z88.0 Allergy status to penicillin
CPT/HCPCS: 36415; 74019; 80053; 83605; 83690; 85025; 86140; 99284; A9270-GY

== ENCOUNTER 2020-11-09 06:00 | Observation (INO) ==
[~2020-11-09 06:00] MED LIST changes: +Buffered Lidocaine 1% SYRIN 1 ml INTRADERM ONE; -Buffered Lidocaine 1% SYRIN* 1 ML/SYRINGE INTRADERM ONE; +Famotidine IV 10 MG/ML 2 ml VIAL (20 mg) IV ONE; -HYDROmorphone INJ1* 1 MG/ML SYRINGE IV PRN; +Lactated Ringers 1000 ml BAG 1,000 ML IV SCH; -Naloxone* 0.4 MG/ML 1 ML VIAL IV PRN; -PROCHLORPERAZINE INJ 5 MG/ML 2 ML VIAL IV PRN; -fentaNYL* 50 MCG/ML 2 ML VIAL (100 MCG VIAL) IV PRN; -oxyCODONE TAB* 5 MG TAB PO PRN
[2020-11-09] MEDS ORDERED: Famotidine IV 10 MG/ML 2 ml VIAL (20 mg) ONE (06:49)
[2020-11-09] MEDS ORDERED: Clindamycin 900 MG/D5W BAG 900 MG/50 ML BAG IVPB ONE (06:49)
[2020-11-09] MEDS ORDERED: Buffered Lidocaine 1% SYRIN 1 ml INTRADERM ONE (06:49)
[2020-11-09] MEDS ORDERED: ROPIVACAINE 5 MG/ML 30 ML BTL (0.5%) ONE ×2 (07:11→07:29)
[2020-11-09] MEDS ORDERED: Ondansetron 4 mg VIAL 2 MG/ML 2 ml VIAL ONE (07:16)
[2020-11-09] MEDS ORDERED: Dexamethasone IV 4 MG/ML VIAL 1 ml VIAL ONE ×2 (07:16→07:22)
[2020-11-09] MEDS ORDERED: fentaNYL 100 mcg/2 ml 50 MCG/ML VIAL ONE ×2 (07:16→07:22)
[2020-11-09] MEDS ORDERED: Propofol 10 MG/ML 20 ML BTL ONE ×2 (07:16→09:46)
[2020-11-09] MEDS ORDERED: Phenylephrine IV 10 MG/ML 1 ml VIAL ONE (07:17)
[2020-11-09] MEDS ORDERED: Lidocaine 2% PF 5 ML VIAL ONE (07:17)
[2020-11-09] MEDS ORDERED: Midazolam 2 mg/2 ml VIAL 1 mg/ml 2 ml VIAL (2 mg) ONE (07:22)
[2020-11-09] MEDS ORDERED: Glycopyrrolate IV 0.2 MG/ML 1 ML VIAL ONE (08:33)
[2020-11-09] MEDS ORDERED: diPHENhydraMINE IV 50 MG/ML 1 ml VIAL (BENADRYL) IV PRN ×2 (09:13→09:51)
[2020-11-09] MEDS ORDERED: Lactulose 30 ml UDC PO PRN (09:13)
[2020-11-09] MEDS ORDERED: Ondansetron 4 mg VIAL 2 MG/ML 2 ml VIAL IV PRN ×2 (09:13→09:51)
[2020-11-09] MEDS ORDERED: Ondansetron ODT 4 mg TAB 4 MG TAB PO PRN (09:13)
[2020-11-09] MEDS ORDERED: Morphine 2 MG/ML SYRINGE IV PRN (09:13)
[2020-11-09] MEDS ORDERED: diPHENhydraMINE 25 mg TAB PO PRN (09:13)
[2020-11-09] MEDS ORDERED: Magnesium Hydroxide LIQ 30 ML UDC PO PRN (09:13)
[2020-11-09] MEDS ORDERED: HYDROmorphone 1 MG/1 ML SYRINGE IV PRN (09:51)
[2020-11-09] MEDS ORDERED: HYDROcodone/ACETAMIN 5/325 mg TAB PO PRN (09:51)
[2020-11-09] MEDS ORDERED: Metoclopramide 5 MG/ML VIAL (10 mg) IV PRN (09:51)
[2020-11-09] MEDS ORDERED: Naloxone 0.4 mg VIAL 0.4 mg/ml 1 ml VIAL IV PRN (09:51)
[2020-11-09] MEDS ORDERED: HYDROcodone/ACETAMIN 5/325 mg TAB ONE (11:17)
[2020-11-09] MEDS ORDERED: Dextrose 50% Syringe 50 ml 25 GM/50 ML SYRINGE IV PUSH PRN ×2 (12:23→15:20)
[2020-11-09] MEDS: Lactated Ringers 1000 ml BAG 1,000 ML IV SCH ×2 (13:05→22:46)
[2020-11-09] MEDS: Clindamycin 600 MG/D5W BAG 600 MG/50 ML BAG IV SCH (16:55)
[2020-11-09] MEDS: Magnesium Hydroxide LIQ 30 ML UDC PO SCH (20:24)
[2020-11-09] MEDS ORDERED: GLIMEPIRIDE 1 MG PO SCH (21:00)
[2020-11-09] MEDS ORDERED: Calcium Carb (TUMS) 500 mg CHEW TAB PO PRN (23:57)
[2020-11-10] MEDS: Clindamycin 600 MG/D5W BAG 600 MG/50 ML BAG IV SCH ×2 (00:19→07:23)
[2020-11-10 06:06] LABS: Hematocrit 37 % (42-52); Hemoglobin 12.5 g/dL (14.0-18.0); Mean Platelet Volume 9.9 fL (7.4-10.4); Platelet Count 127 10^3/uL (150-450)
[2020-11-10 06:22] LABS: Calcium 9.3 mg/dL (8.6-10.3); EGFR African American 118.4 (>60); EGFR Non-African American 97.8 (>60); Potassium 4.2 mmol/L (3.5-5.0)
[2020-11-10] MEDS: Magnesium Hydroxide LIQ 30 ML UDC PO SCH (08:55)
[2020-11-10] MEDS ORDERED: Vitamin THERAPEUTIC TAB PO SCH (09:00)
[2020-11-10] MEDS ORDERED: ALOGLIPTIN 6.25 MG PO SCH (09:00)
[2020-11-10] MEDS ORDERED: Albuterol HFA INHALER 8 gm MDI INH PRN (09:38)
[2020-11-10 11:33] VITALS: BP 145/55
== END 2020-11-10 16:30 | disposition home or self-care (01) ==
LOC: OR 06:00 → SSU 06:00
PROVIDERS: ADMIT Orthopaedic Surgery Adult Reconstructive Orthopaedic Surgery; ATTEND Orthopaedic Surgery Adult Reconstructive Orthopaedic Surgery